=== PATIENT | female | born 1990 | race African-American/Black ===

== ENCOUNTER 2016-11-24 09:23 | Emergency (ER) | payer BC, OTHER ==
[2016-11-24 09:42] VITALS: TEMP 97.6; BMI 25.0
[2016-11-24] MEDS ORDERED: SODIUM CHLORIDE 1,000 ML IV STA (10:18)
[2016-11-24] MEDS ORDERED: ONDANSETRON 4 MG/2 ML VIAL IVPUSH ONE (10:18)
[2016-11-24] MEDS ORDERED: KETOROLAC TROMETHAMINE 30 MG/1 ML VIAL IVPUSH ONE (10:23)
[2016-11-24] MEDS ORDERED: ONDANSETRON 4 MG/2 ML VIAL ONE (10:24)
--- NOTE | 2016-11-24 10:27 | PDOC ---
History of Present Illness - General Chief Complaint: Nausea/Vomiting Stated Complaint: VOMITING Time Seen by Provider: 11/24/16 10:18 History Source: Patient - History of Present Illness Timing/Duration: reports: other (last night) Quality: reports: moderate Abdominal Pain Onset Location: reports: generalized abdomen Past History - Past Medical History Allergies/Adverse Reactions: Allergies Allergy/AdvReac Type Severity Reaction Status Date / Time No Known Allergies Allergy Verified 11/24/16 09:36 Home Medications: Ambulatory Orders NK [No Known Home Medication] 11/24/16 Other medical history: none - Immunization History Immunization Up to Date: Yes - Suicide/Smoking/Psychosocial Hx Smoking History: Current every day smoker Have you smoked in the past 12 months: Yes Number of Cigarettes Smoked Daily: 3 Information on smoking cessation initiated: No Hx Alcohol Use: Yes Drug/Substance Use Hx: No Substance Use Type: Alcohol Review of Systems - Review of Systems Constitutional: No: Chills, Fever ABD/GI: Yes: Nausea, Vomiting, Abdominal cramping. No: Constipated, Diarrhea : No: Dysuria *Physical Exam - Vital Signs Last Vital Signs Temp Pulse Resp BP Pulse Ox 97.6 F 60 20 152/116 100 11/24/16 09:36 11/24/16 09:36 11/24/16 09:36 11/24/16 09:36 11/24/16 09:36 - Physical Exam General Appearance: Yes: Appropriately Dressed, Moderate Distress HEENT: positive: Normal Voice Neck: positive: Supple Respiratory/Chest: negative: Respiratory Distress Gastrointestinal/Abdominal: positive: Tender (diffusely), Soft. negative: Distended, Guarding, Rebound Musculoskeletal: negative: CVA Tenderness Integumentary: positive: Dry, Warm Neurologic: positive: Fully Oriented, Alert, Normal Mood/Affect ED Treatment Course - LABORATORY CBC & Chemistry Diagram: 11/24/16 10:20 11/24/16 10:18 Medical Decision Making - Medical Decision Making 11/24/16 10:23 26-year-old female, history of dysmenorrhea, here with abdominal cramping with nausea, vomiting in the setting of menstruation. States symptoms started yesterday and similar to in the past. Also reports that she went to a barbecue last night and had 4 beers, which is unusual for her. Feels very thirsty now per pt. Patient denies dysuria, change in BM, fever or chills See exam Dysmenorrhea w/ n/v Recurrent -pain control -IVF -labs -reassess 11/24/16 10:27 11/24/16 12:41 Pt feeling significantly better and requesting discharge. Labs unremarkable 11/24/16 12:42 *DC/Admit/Observation/Transfer Diagnosis at time of Disposition: Dysmenorrhea - Discharge Dispostion Disposition: HOME Condition at time of disposition: Improved - Patient Instructions Printed Discharge Instructions: DI for Dysmenorrhea Additional Instructions: Rest, drink plenty fluids and take motrin as needed for cramping
[2016-11-24] MEDS ORDERED: KETOROLAC TROMETHAMINE 30 MG/1 ML VIAL ONE (10:42)
[2016-11-24 10:56] LABS: BASOPHIL 0.3 % (0-2.0); EOSINOPHIL 0.1 % (0-4.5); MCH 31.4 pg (25.7-33.7); MCHC 32.9 g/dl (32.0-36.0); MEAN CELL VOLUME 95.3 fl (80-96); MEAN PLT VOLUME 10.4 fl (7.5-11.1); NEUTROPHILS 85.9 % (42.8-82.8); PLATELET COUNT 227 K/MM3 (134-434); RDW 14.2 % (11.6-15.6)
[2016-11-24 11:25] LABS: URINE APPEARANCE SLCLOUDY; URINE BILIRUBIN NEGATIVE (NEGATIVE); URINE BLOOD NEGATIVE (NEGATIVE); URINE COLOR YELLOW; URINE GLUCOSE (UA) NEGATIVE (NEGATIVE); URINE KETONE 1+ (NEGATIVE); URINE LEUK ESTERASE NEGATIVE (NEGATIVE); URINE NITRITE NEGATIVE (NEGATIVE); URINE UROBILINOGEN NEGATIVE mg/dL (0.2-1.0)
[2016-11-24 11:29] LABS: URINE PROTEIN 2+ (NEGATIVE)
[2016-11-24 11:32] LABS: ANION GAP 11 (8-16); BILIRUBIN,TOTAL 0.5 mg/dL (0.2-1.0); CALCIUM 8.8 mg/dL (8.5-10.1); CO2 21 mmol/L (21-32); CREATININE 0.8 mg/dL (0.55-1.02); GLUCOSE,RANDOM 139 mg/dL (74-106); SGPT/ALT 16 U/L (12-78); TOT PROT 7.1 g/dl (6.4-8.2)
[2016-11-24 11:35] LABS: ALK PHOS 48 U/L (45-117)
[2016-11-24 11:37] LABS: SGOT/AST 18 U/L (15-37)
[2016-11-24 12:51] VITALS: BP 104/54; PULSE 63
== END 2016-11-24 12:51 | disposition home or self-care (01) ==
LOC: JER 09:23
PROC: 3E0333Z Introduction of Anti-inflammatory into Peripheral Vein, Percutaneous Approach (ICD-10-PCS; principal; 2016-11-24)
PROC: 3E033GC Introduction of Other Therapeutic Substance into Peripheral Vein, Percutaneous Approach (ICD-10-PCS; 2016-11-24)
DX: N94.6 Dysmenorrhea, unspecified (principal)
CPT/HCPCS: 36415; 80053; 81003; 81015; 84702; 85025; 99282-25